=== PATIENT | female | born 2000 | race African-American/Black ===

== ENCOUNTER 2023-01-05 01:50 | Emergency (ER) | payer OTHER, MEDICAID, SELFPAY ==
[2023-01-05 01:53] VITALS: BP 121/74; PULSE 90; RESP 18; TEMP 36.6; O2SAT 100; BMI 21.5
--- NOTE | 2023-01-05 02:45 | RAD_ITS ---
STUDY: X-RAY - CERVICAL SPINE REASON FOR EXAM: Female, 22 years old. Pain TECHNIQUE: 6 view(s) of the cervical spine were obtained. COMPARISON: None FINDINGS: Normal anterior atlantoaxial articulation. Normal odontoid process. Patient name appears flexed forward. There is straightening of the physiologic lordosis. Normal vertebral bodies and endplates. Normal disc space heights. Normal visualized intervertebral neuroforamina. The soft tissue structures are unremarkable. RAD/Cerv Spine 4 or 5 Views IMPRESSION: No visualized fracture. Could consider possible muscle spasm and/or pain. Pain persists recommend consideration for follow-up MRI. Electronically Signed: Rashida Perales MD at 3:13 EDT Reading Location ID and State: On license of [facility] / [place] Tel , Service support ,
--- NOTE | 2023-01-05 03:00 | ED.RN ---
DRUG SCREENER [employer] PURIFICATION OPERATOR CALLED. 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 PATIENT WILL NEED TO FOLLOW UP WITH [facility] IN THE MORNING
--- NOTE | 2023-01-05 03:30 | EX.ED.DYSGE1 ---
HPI History of Present Illness Chief Complaint: Head Injury Informant: patient Narrative Narrative: 22-year-old female with past medical history of anxiety. She states she was at work this evening when she was moving boxes and doing so accidentally had boxes fall and strike her in the posterior head and neck region. She states the boxes were made of cardboard and filled with potato chips. She states that she felt dazed but did not have loss of consciousness. She states at this time she has pain in both her left and right-sided neck that is worse with any type of motion. However there is no radiation of the pain down the arms. Patient denies any history of bleeding disorder or blood thinner use. With the injury occurring at work she was sent in for further evaluation [facility] Medical History Anxiety Home Medications cetirizine 10 mg tablet (Zyrtec) 10 mg PO DAILY 01/05/23 [History Last Taken Unknown] hydroxyzine HCl 50 mg tablet 50 mg PO BID PRN Anxiety 01/05/23 [History Last Taken Unknown] methocarbamol 500 mg tablet 1,000 mg PO 4X/DAY PRN PRN Muscle pain/ spasm #56 tabs 01/05/23 [Rx Last Taken Unknown] Allergy/AdvReac Type Severity Reaction Status Date / Time No Known Allergies Allergy Verified 01/05/23 02:00 Social History Smoking Status: Never smoker ROS ROS ED Constitutional Constitutional ED: Denies chills or fever(s) Eyes Eyes: Reports other Details: Positive photophobia ; Denies blurry vision or change in vision ENT ENT ED: Denies sore throat Cardiovascular Cardiovascular: Denies chest pain Respiratory/Chest Respiratory/Chest: Denies cough or dyspnea Gastrointestinal Gastrointestinal: Reports nausea; Denies abdominal pain, diarrhea or vomiting Genitourinary Genitourinary ED: Denies dysuria Musculoskeletal Musculoskeletal: Reports neck pain Integumentary Denies rash Neurologic Neurologic: Denies headache(s), paresthesias or weakness Hematologic/Lymphatic Hematologic/Lymphatic: Denies easy bleeding or easy bruising EXAM Physical Exam Const Vital Signs: 01/05/23 01:53 01/05/23 02:00 Temperature 97.9 F Temperature Source Temporal Pulse Rate 90 Respiratory Rate 18 Respiratory Effort Normal Non-Labored Respiratory Depth Normal Respiratory Pattern Normal Blood Pressure 121/74 H Blood Pressure Mean 89 Pulse Ox 100 Oxygen Delivery Method Room Air Positive well nourished and well developed General Appearance ED: well developed HEENT HEENT Narrative: No signs of depressed or basilar skull fracture Eyes PERRL and EOMs intact bilaterally General Eye ED: Negative for scleral icterus Neck Neck Narrative: No bony deformity or step-off of the cervical spine. Patient has muscular tension and spasm noted along the left and right paralumbar muscle belly regions that worsens with side bending and rotation. Resp normal respiratory effort and clear to auscultation bilaterally Cardio regular rate and regular rhythm Extremity normal to inspection Neuro oriented x3, CN's II-XII intact bilaterally and no sensory deficits noted Sensorium / Orientation: alert Psych mental status grossly normal Skin no rashes or lesions noted Skin Narrative: No abrasions or ecchymosis noted MDM MDM MDM Narrative Medical decision making narrative: Patient presented to the ER with report of closed head injury. She did not have loss of consciousness nor does she take blood thinners or have a history of bleeding disorder. She also reports pain in her neck diffusely and states that her head/neck was pushed to the side by the trauma. The mechanism of injury is low as the boxes were made of cardboard and not extremely heavy. Differential diagnosis includes concussion versus skull fracture versus epidural or subdural hematoma versus compression fracture versus cervical myofascial spasm and strain. At this time as patient has no signs of depressed or basilar skull fracture and is low risk for underlying traumatic brain injury and the mechanism of injury is low I do not feel need for a CT scan. With diffuse pain in the neck I did elect to perform an acute cervical spine x-ray which revealed no acute compression fracture or spondylolisthesis. Therefore at this time exam and work-up indicates this is most likely muscle in nature and as there is no signs of neurologic impingement or traumatic brain injury she is otherwise safe for History & Record Review Discussion w/independent historian: Patient Radiography Diagnostic Testing: Clinical Impression(s) from Imaging Studies Cervical Spine X-Ray 01/05/23 02:45 IMPRESSION: No visualized fracture. Could consider possible muscle spasm and/or pain. Pain persists recommend consideration for follow-up MRI. Electronically Signed: Rashida Perales MD at 3:13 EDT Reading Location ID and State: [facility] / [place] Tel , Service support , Cervical spine x-ray as interpreted by the emergency medicine physician reveals no acute compression fracture or spondylolisthesis but there is straightening of the normal cervical lordosis Discharge Plan Triage Chief Complaint: Head Injury ED Provider: Leonides Conrad Dx/Rx/DC Orders Clinical Impression: Closed head injury, Acute cervical myofascial strain, Cervical paraspinal muscle spasm Instructions: ED Head Injury (Adult), ED Neck Sprain or Strain Prescriptions: New methocarbamol 500 mg tablet 1,000 mg PO 4X/DAY PRN PRN (Reason: Muscle pain/ spasm) Qty: 56 0RF No Action cetirizine [Zyrtec] 10 mg Tablet 10 mg PO DAILY hydroxyzine HCl 50 mg Tablet 50 mg PO BID PRN (Reason: Anxiety) Primary Care Provider: [facility] Referrals: [facility] [Other] Activity Restrictions/Additional Instructions: Please continue to stretch and heat your neck to reduce pain and speed healing. Please return to the ER should you have any further concerns Disposition Disposition: Home, Self Care
[2023-01-05] MEDS: Orphenadrine 60 MG/2 ML Ampul IM (03:54)
[2023-01-05] MEDS: Ketorolac 30 MG/ML Syringe IM (03:56)
== END 2023-01-05 04:10 | disposition home or self-care (01) ==
PROVIDERS: Emergency Provider Emergency Medicine; Visit Provider Emergency Medicine
DX: S09.90XA Unspecified injury of head, initial encounter (principal); S16.1XXA Strain of muscle, fascia and tendon at neck level, initial encounter; F41.9 Anxiety disorder, unspecified; M62.830 Muscle spasm of back; W22.8XXA Striking against or struck by other objects, initial encounter; Y99.0 Civilian activity done for income or pay
CPT/HCPCS: 72050; 96372; 99282